=== PATIENT | female | born 1955 | race Caucasian/White ===

== ENCOUNTER → 2020-05-16 | Outpatient (CLI) | payer MEDICARE | LOC: M.RAD 09:49 | PROVIDERS: ATTEND Family Medicine | DX: Z12.31 Encounter for screening mammogram for malignant neoplasm of breast (principal) ==

== ENCOUNTER → 2021-05-13 | Outpatient (CLI) | payer MEDICARE ==
[2021-05-13 09:08] LABS: CREATININE 0.8 mg/dL (0.6-1.3)
== END ==
LOC: M.LAB 02-14 13:15
PROVIDERS: ATTEND Family Medicine
DX: Z12.31 Encounter for screening mammogram for malignant neoplasm of breast (principal); Z13.820 Encounter for screening for osteoporosis; Z78.0 Asymptomatic menopausal state; R91.1 Solitary pulmonary nodule